=== PATIENT | male | born 1995 | race African-American/Black ===

== ENCOUNTER 2023-06-14 01:12 | Emergency (ER) | payer OTHER ==
[~2023-06-14] VITALS: Ht 180.3 cm; Wt 79.4 kg
[2023-06-14 01:12] VITALS: BP 143/89; PULSE 70; RESP 20; TEMP 97.1; O2SAT 99
[2023-06-14] MEDS ORDERED: fentaNYL citrate 0.05 MG/ML VIAL ONE (01:14)
[2023-06-14] MEDS ORDERED: NACL 0.9% 1,000 ML IV ONE (01:15)
[2023-06-14] MEDS ORDERED: fentaNYL citrate 0.05 MG/ML VIAL IVP ONE (01:15)
[2023-06-14 01:31] VITALS: BP 143/89; RESP 20; TEMP 97.1; O2SAT 99
[2023-06-14 01:37] VITALS: PULSE 71
== END 2023-06-14 01:31 | disposition short-term general hospital (02) ==
LOC: MED 01:12
DX: S21.131A Puncture wound without foreign body of right front wall of thorax without penetration into thoracic cavity, initial encounter (principal); W34.09XA Accidental discharge from other specified firearms, initial encounter; Y93.89 Activity, other specified; Y92.89 Other specified places as the place of occurrence of the external cause; Y99.8 Other external cause status
CPT/HCPCS: 71045; 90471; 90715; 96361; 96374; 99285; J3010; J7030